=== PATIENT | female | born 1945 | race Two or more races ===

== ENCOUNTER → 2019-09-28 | Outpatient (CLI) | payer OTHER | END | disposition home or self-care (01) | LOC: TOM 12:14 | DX: R91.1 Solitary pulmonary nodule (principal) ==

== ENCOUNTER 2019-10-22 09:19 | Outpatient (CLI) | payer OTHER | END 2019-10-22 10:00 | disposition home or self-care (01) | LOC: NUCLEAR 09:19 | DX: R91.1 Solitary pulmonary nodule (principal) | CPT/HCPCS: 78816; A9552 ==

== ENCOUNTER → 2020-05-16 | Outpatient (CLI) | payer OTHER | END | disposition home or self-care (01) | LOC: NUCLEAR 10:19 | PROVIDERS: ATTEND Internal Medicine Hematology & Oncology | DX: C34.31 Malignant neoplasm of lower lobe, right bronchus or lung (principal) | CPT/HCPCS: 78815; A9552 ==

== ENCOUNTER 2020-06-27 15:31 | Outpatient (CLI) | payer OTHER | END 2020-06-27 15:38 | disposition home or self-care (01) | LOC: RAD 15:31 | PROVIDERS: ATTEND Internal Medicine Pulmonary Disease | DX: C80.1 Malignant (primary) neoplasm, unspecified (principal); J98.11 Atelectasis; J93.9 Pneumothorax, unspecified ==

== ENCOUNTER 2020-06-28 10:01 | Outpatient (CLI) | payer OTHER | END 2020-06-30 12:10 | disposition home or self-care (01) | LOC: MRI 10:01 | DX: M54.2 Cervicalgia (principal) | CPT/HCPCS: 72141 ==

== ENCOUNTER 2020-10-23 10:45 | Outpatient (CLI) | payer OTHER | END 2020-10-23 10:50 | disposition home or self-care (01) | LOC: LAB 10:45 | PROVIDERS: ATTEND Radiology Diagnostic Radiology | DX: M54.5 Low back pain (principal) ==

== ENCOUNTER → 2020-10-24 | Outpatient (CLI) | payer OTHER | END | disposition home or self-care (01) | LOC: MRI 11:15 | PROVIDERS: ATTEND Physical Medicine & Rehabilitation | DX: M48.07 Spinal stenosis, lumbosacral region (principal); M54.5 Low back pain | CPT/HCPCS: 72158; A9575 ==

== ENCOUNTER 2020-10-31 10:07 | Outpatient (CLI) | payer OTHER | END 2020-10-31 10:24 | disposition home or self-care (01) | LOC: NUCLEAR 10:07 | PROVIDERS: ATTEND Internal Medicine Hematology & Oncology | DX: C34.31 Malignant neoplasm of lower lobe, right bronchus or lung (principal) | CPT/HCPCS: 78815; A9552 ==

== ENCOUNTER → 2021-03-30 11:27 | Outpatient (CLI) | payer OTHER | END | disposition home or self-care (01) | LOC: LAB 11:27 | PROVIDERS: ATTEND Radiology Diagnostic Radiology | DX: M54.2 Cervicalgia (principal) ==

== ENCOUNTER → 2021-03-30 | Outpatient (CLI) | payer OTHER | END | disposition home or self-care (01) | LOC: RAD 12:05 | DX: M54.2 Cervicalgia (principal); M54.5 Low back pain; M54.6 Pain in thoracic spine ==

== ENCOUNTER → 2021-04-03 | Outpatient (CLI) | payer OTHER | END | disposition home or self-care (01) | LOC: MRI 08:39 | PROVIDERS: ATTEND Family Medicine | DX: M50.11 Cervical disc disorder with radiculopathy, high cervical region (principal) | CPT/HCPCS: 72156; A9575 ==

== ENCOUNTER 2021-04-05 09:17 | Outpatient (CLI) | payer OTHER | END 2021-04-05 09:29 | disposition home or self-care (01) | LOC: RAD 09:17 | PROVIDERS: ATTEND Family Medicine | DX: M25.512 Pain in left shoulder (principal) ==

== ENCOUNTER 2021-06-21 08:12 | Outpatient (CLI) | payer OTHER | END 2021-06-21 08:13 | disposition home or self-care (01) | LOC: NUCLEAR 08:12 | PROVIDERS: ATTEND Internal Medicine Hematology & Oncology | DX: C34.31 Malignant neoplasm of lower lobe, right bronchus or lung (principal) | CPT/HCPCS: 78815; A9552 ==

== ENCOUNTER 2021-08-21 14:28 | Outpatient (CLI) | payer OTHER | END 2021-08-21 14:36 | disposition home or self-care (01) | LOC: RAD 14:28 | PROVIDERS: ATTEND Physical Medicine & Rehabilitation | DX: M25.551 Pain in right hip (principal); M25.552 Pain in left hip ==

== ENCOUNTER → 2022-01-10 07:59 | Outpatient (CLI) | payer OTHER | END | disposition home or self-care (01) | LOC: NUCLEAR 07:59 | PROVIDERS: ATTEND Internal Medicine Hematology & Oncology | DX: C34.31 Malignant neoplasm of lower lobe, right bronchus or lung (principal) ==

== ENCOUNTER 2022-01-31 12:30 | Outpatient (CLI) | payer OTHER | END 2022-01-31 13:00 | disposition home or self-care (01) | LOC: SONOGRAMA 12:30 | PROVIDERS: ATTEND Family Medicine | DX: E04.2 Nontoxic multinodular goiter (principal) ==

== ENCOUNTER 2022-03-04 14:45 | Outpatient (CLI) | payer OTHER | END 2022-03-04 14:53 | disposition home or self-care (01) | LOC: RAD 14:45 | PROVIDERS: ATTEND Specialist | DX: M16.11 Unilateral primary osteoarthritis, right hip (principal) ==

== ENCOUNTER 2022-09-13 14:16 | Outpatient (CLI) | payer OTHER | END 2022-09-13 14:19 | disposition home or self-care (01) | LOC: RAD 14:16 | PROVIDERS: ATTEND Specialist | DX: M25.551 Pain in right hip (principal) ==

== ENCOUNTER 2022-09-24 07:40 | Outpatient (CLI) | payer OTHER | END 2022-09-24 07:41 | disposition home or self-care (01) | LOC: NUCLEAR 07:40 | PROVIDERS: ATTEND Internal Medicine Hematology & Oncology | DX: C34.31 Malignant neoplasm of lower lobe, right bronchus or lung (principal); Z88.0 Allergy status to penicillin; Z88.2 Allergy status to sulfonamides | CPT/HCPCS: 78816; A9552 ==

== ENCOUNTER 2022-10-17 14:10 | Outpatient (CLI) | payer OTHER | END 2022-10-17 14:14 | disposition home or self-care (01) | LOC: RAD 14:10 | PROVIDERS: ATTEND Specialist | DX: M17.11 Unilateral primary osteoarthritis, right knee (principal) ==

== ENCOUNTER 2023-03-04 08:02 | Outpatient (CLI) | payer OTHER | END 2023-03-04 08:04 | disposition home or self-care (01) | LOC: NUCLEAR 08:02 | PROVIDERS: ATTEND Internal Medicine Hematology & Oncology | DX: C34.31 Malignant neoplasm of lower lobe, right bronchus or lung (principal) | CPT/HCPCS: 78815; A9552 ==

== ENCOUNTER 2023-09-03 15:05 | Outpatient (CLI) | payer OTHER | END 2023-09-03 15:13 | disposition home or self-care (01) | LOC: RAD 15:05 | PROVIDERS: ATTEND Physical Medicine & Rehabilitation | DX: M17.0 Bilateral primary osteoarthritis of knee (principal); M25.552 Pain in left hip; M25.551 Pain in right hip ==

== ENCOUNTER 2023-11-13 07:42 | Outpatient (CLI) | payer OTHER | END 2023-11-13 07:43 | disposition home or self-care (01) | LOC: NUCLEAR 07:42 | PROVIDERS: ATTEND Internal Medicine Hematology & Oncology | DX: C34.31 Malignant neoplasm of lower lobe, right bronchus or lung (principal) | CPT/HCPCS: 78815; A9552 ==

== ENCOUNTER → 2023-12-04 07:09 | Outpatient (CLI) | payer OTHER ==
[2023-12-04 07:50] LABS: HEMATOCRIT 39.4 % (36.0-45.00); HEMOGLOBIN 13.1 g/dL (12.0-15.00); MEAN CELL VOLUME 88.6 fL (80.00-100.00); MEAN CORPUSCULAR HEMOGLOBIN 29.5 pg (27.00-32.0); MEAN CORPUSCULAR HGB CONC 33.3 g/dl (32.0-36.0); PLATELET COUNT 318 K/uL (150-450); RED BLOOD COUNT 4.44 M/uL (4.00-6.00); RED CELL DISTRIBUTION WIDTH 13.9 % (11.5-14.5)
[2023-12-04 08:27] LABS: ALBUMIN 3.8 gm/dL (3.4-5.0); BILIRUBIN TOTAL 0.83 mg/dL (0.3-1.2); CREATININE SERUM 0.65 mg/dL (0.55-1.02); GFR 88.15; GLOBULINA 3.1 G/DL (2.4-3.5); POTASSIUM 4.05 mEq/L (3.5-5.1); TOTAL PROTEIN 6.9 gm/dL (6.4-8.2)
== END | disposition home or self-care (01) ==
LOC: LAB 07:09
PROVIDERS: ATTEND Internal Medicine Hematology & Oncology
DX: C34.31 Malignant neoplasm of lower lobe, right bronchus or lung (principal)

== ENCOUNTER 2023-12-08 07:58 | Outpatient (CLI) | payer OTHER | END 2023-12-08 08:07 | disposition home or self-care (01) | LOC: TOM 07:58 | PROVIDERS: ATTEND Internal Medicine Hematology & Oncology | DX: C34.31 Malignant neoplasm of lower lobe, right bronchus or lung (principal) ==

== ENCOUNTER 2024-06-09 07:45 | Outpatient (CLI) | payer OTHER | END 2024-06-09 07:46 | disposition home or self-care (01) | LOC: NUCLEAR 07:45 | PROVIDERS: ATTEND Internal Medicine Hematology & Oncology | DX: C34.31 Malignant neoplasm of lower lobe, right bronchus or lung (principal) | CPT/HCPCS: 78815; A9552 ==

== ENCOUNTER 2024-07-06 09:33 | Outpatient (CLI) | payer OTHER | END 2024-07-06 09:36 | disposition home or self-care (01) | LOC: TOM 09:33 | PROVIDERS: ATTEND Internal Medicine Hematology & Oncology | DX: C34.31 Malignant neoplasm of lower lobe, right bronchus or lung (principal) | CPT/HCPCS: 71270; Q9965 ==

== ENCOUNTER 2024-08-03 13:48 | Outpatient (CLI) | payer OTHER | END 2024-08-03 13:54 | disposition home or self-care (01) | LOC: SONOGRAMA 13:48 | DX: E07.9 Disorder of thyroid, unspecified (principal); D34 Benign neoplasm of thyroid gland ==

== ENCOUNTER 2025-02-09 12:32 | Outpatient (CLI) | payer OTHER | END 2025-02-09 12:39 | disposition home or self-care (01) | LOC: MRI 12:32 | PROVIDERS: ATTEND Orthopaedic Surgery | DX: S83.242A Other tear of medial meniscus, current injury, left knee, initial encounter (principal) | CPT/HCPCS: 73718 ==

== ENCOUNTER 2025-02-22 07:21 | Outpatient (CLI) | payer OTHER | END 2025-02-22 07:22 | disposition home or self-care (01) | LOC: NUCLEAR 07:21 | DX: C34.31 Malignant neoplasm of lower lobe, right bronchus or lung (principal) | CPT/HCPCS: 78815; A9552 ==

== ENCOUNTER 2025-03-10 10:34 | Outpatient (CLI) | payer OTHER | END 2025-03-10 10:39 | disposition home or self-care (01) | LOC: SONOGRAMA 10:34 | PROVIDERS: ATTEND Pathology Anatomic Pathology | DX: D34 Benign neoplasm of thyroid gland (principal); E07.89 Other specified disorders of thyroid; E04.1 Nontoxic single thyroid nodule ==

== ENCOUNTER 2025-05-27 15:48 | Outpatient (CLI) | payer OTHER | END 2025-05-27 15:49 | disposition home or self-care (01) | LOC: RAD 15:48 | PROVIDERS: ATTEND Physical Medicine & Rehabilitation | DX: M25.561 Pain in right knee (principal); M25.562 Pain in left knee ==

== ENCOUNTER → 2025-11-25 | Outpatient (CLI) | payer OTHER | END | disposition home or self-care (01) | LOC: NUCLEAR 11-21 10:00 | PROVIDERS: ATTEND General Practice | DX: R60.0 Localized edema (principal) ==